=== PATIENT | female | born 1985 | race Caucasian/White ===

== ENCOUNTER 2023-04-25 19:36 | Emergency (ER) | payer OTHER, SELFPAY ==
[2023-04-25 19:44] VITALS: BP 199/144; PULSE 110; RESP 18; TEMP 36.4; O2SAT 100; BMI 29.0
[2023-04-25] MEDS: neomycin-poly-bacitracin oint 28 gm 1 APPLIC TOPICAL (20:25)
[2023-04-25] MEDS: erythromycin Op Oint 1 gm 1 APPLIC EYE-LEFT (21:26)
[2023-04-25] MEDS: tetracaine 0.5% Op Soln 4 mL Btl 1 DROP EYE-LEFT (21:26)
--- NOTE | 2023-04-25 21:37 | W.ED.EYEPROB ---
HPI - Eye Problem General: Chief complaint: Eye Problems Stated complaint: Left Eye Injury Time Seen by Provider: 04/25/23 19:48 History of Present Illness: 37-year-old female presents emergency room with pain on left thigh. Patient accidentally apply crazy glue to her eyelids 2 days ago instead of eyedrops. Patient described the pain as throbbing sensation with severity of 7 out of 10. Denies any fever, chills, headache or blurry vision Associated symptoms: Denies fever(s) Review of Systems General: Reports: 10 or more systems reviewed and unremarkable except in HPI and below Const: Denies: fever(s), chills or body aches Eyes: Reports: eye redness; Denies: yellow eyes, dry eyes, increased production of tears or floaters Physical Exam HENMT: COMMON NORMALS: normocephalic, atraumatic, hearing grossly normal bilaterally, external ears normal, EAC's normal, TM's normal bilaterally, Normal external nose present, Normal nasal mucous membranes and turbinates present, moist oral mucous membranes, oropharynx normal, dentition normal and gingiva normal HEAD & SCALP: normocephalic and atraumatic NOSE: Normal external nose present and Normal nasal mucous membranes and turbinates present EXTERNAL EAR: Yes external ears normal EXTERNAL AUDITORY CANAL: EAC's normal TYMPANIC MEMBRANE: TM's normal bilaterally Eye: COMMON NORMALS: Equal, round and reactive pupils present PERIORBITAL: periorbital findings abnormal (Mild redness and swelling) positive left EYELID: other (Diffuse swelling and redness of the eyelids. Infusion of eyelashes) CONJUNCTIVA: Yes conjunctival abnormal (Redness and ecchymosis) positive left CORNEA: Yes other (Some chemosis and redness.) PUPIL: Yes Equal, round and reactive pupils present EOM: No EOM abnormal and No Nystagmus present Neck/C-Spine: COMMON NORMALS: full ROM, no lymphadenopathy, supple, no meningeal signs, no JVD, Thyroid normal and No carotid bruits THYROID: Thyroid normal Cardio: COMMON NORMALS: no JVD Neuro: MENINGEAL SIGNS: Yes no meningeal signs Course Consultations: Consultation #1: Discussed patient with Dr. Hayward twice initially recommended removing the glue from the eye. Consultation #2: I spoke with Dr. Hayward again after removing the glue. I sent him couple of pictures of the eye and recommended antibiotics orally and drops including Vigamox and tobramycin with steroid Vital Signs: Vital signs: Vital Signs Temperature 97.5 F L 04/25/23 19:44 Pulse Rate 110 H 04/25/23 19:44 Respiratory Rate 18 04/25/23 19:44 Blood Pressure 199/144 04/25/23 19:44 Pulse Oximetry 100 04/25/23 19:44 Oxygen Delivery Me thod Room Air 04/25/23 19:44 MDM - Eye Problem Medical Decision Making Patient was made comfortable emergency room patient was made comfortable emergency room I was able to pry the eyelids open after trimming the eyelashes. Patient was found to have copious amount of purulent discharge and chemosis. Antibiotics applied to the area. Again I discussed patient with Dr. Hayward and Dr. Hayward will see patient in the office in 2 days. Patient be discharged home on 2 different antibiotics and oral antibiotics. Differential Diagnosis Likely corneal abrasion, conjunctivitis, acute iritis, hyphema, periorbital cellulitis, subconjunctival hemorrhage, glaucoma, corneal ulcer and ruptured globe No radiology studies performed this visit Discharge Plan Discharge Patient Disposition: Home Clinical Impression: Bacterial conjunctivitis, Periorbital cellulitis Condition: Stable Prescriptions: New Vigamox 0.5 % drops 1 drp ophthalmic (eye) TID 7 Days Qty: 3 0RF tobramycin-dexamethasone 0.3-0.1 % ointment 1 applic ophthalmic (eye) Q6H Qty: 3.5 0RF clindamycin HCl 150 mg capsule 150 mg PO TID 7 Days Qty: 21 0RF Discharge Orders: Discharge ED (Routine); Ordered 04/25/23 Ordered By: Dorota Garcia Referrals: Milo Hayward [Physician] - 1-3 days Discharge Diet: Advance as tolerated Discharge Activity: Resume usual activity Patient Instructions: Opioid Safety, Pain Management Coding Level of Care Code ED Director Of Laboratory Operations for Khushi Hinojosa
[2023-04-25 21:43] VITALS: PULSE 98; RESP 18; O2SAT 96
== END 2023-04-25 21:42 | disposition home or self-care (01) ==
PROVIDERS: Emergency Provider Family Medicine
DX: H10.89 Other conjunctivitis (principal); L03.213 Periorbital cellulitis
CPT/HCPCS: 99283